=== PATIENT | male | born 1995 | race Caucasian/White ===

== ENCOUNTER 2017-08-31 21:05 | Emergency (ER) | payer SELFPAY ==
[~2017-08-31] VITALS: Ht 188 cm; Wt 71.2 kg
[~2017-08-31 21:05] MED LIST: BENADRYL25 MG PO; HYDROCODON-ACE1 EAC7 PO; LORTAB 5-325 M1 EACH PO; MOTRIN600 MG PO; PREDNISONE20 MG PO; PROVENTIL HFA6.7 GM IH; ULTRAM50 MG PO; ZANTAC150 MG PO; ZITHROMAX Z-PA250 MG PO
[2017-08-31 21:52] LABS: HEMATOCRIT 43.8 % (38.0-50.0); MCH 29.8 PG (29.0-34.0); MCHC 34.2 G/DL (30.0-36.0); MCV 87.1 FL (86-99); MEAN PLAT.VOLUME 9.4 uM^3 (9.0-12.4); PLATELET COUNT 221 K/uL (156-360); RBC DIS.WIDTH-CV 12.2 % (11.8-14.6); RBC DIS.WIDTH-SD 39.2 % (39-53); RED BLOOD COUNT 5.03 M/uL (4.00-5.50)
[2017-08-31 22:04] LABS: CHLORIDE 105 mEq/L (99-109); POTASSIUM 3.4 mEq/L (3.7-5.4); SODIUM 139 mEq/L (136-147)
[2017-08-31 22:05] LABS: GLUCOSE 89 mg/dL (70-99)
[2017-08-31 22:07] LABS: ANION GAP 9 MEQ/L (2-14)
[2017-08-31 22:08] LABS: SERUM ETHYL ALCOHOL < 10 mg/dL
[2017-08-31 22:09] LABS: GFR ESTIMATE (CALCULATED) > 59 mL/min/ (58.99-99999)
[2017-08-31 22:11] LABS: UREA NITROGEN (BUN) 6 mg/dL (9-23)
[2017-08-31 22:12] LABS: SALICYLATE < 5.0 MG/DL (15-30)
[2017-08-31] MEDS ORDERED: CELEXA20 MG PO (23:01)
[2017-08-31 23:32] VITALS: BP 142/98
== END 2017-08-31 23:33 | disposition home or self-care (01) ==
LOC: EME 21:05
PROVIDERS: Emergency Medicine
DX: F32.9 Major depressive disorder, single episode, unspecified (principal); F43.25 Adjustment disorder with mixed disturbance of emotions and conduct
CPT/HCPCS: 80048; 85027; 90839; 99281; 99284; G0480

== ENCOUNTER 2017-10-03 22:48 | Emergency (ER) | payer SELFPAY ==
[~2017-10-03] VITALS: Ht 188 cm; Wt 69.9 kg
[~2017-10-03 22:48] MED LIST changes: +CELEXA20 MG PO
[2017-10-03 23:42] VITALS: BP 138/96
== END 2017-10-03 23:51 | disposition home or self-care (01) ==
LOC: EME 22:48
DX: S60.221A Contusion of right hand, initial encounter (principal); W22.09XA Striking against other stationary object, initial encounter; F17.200 Nicotine dependence, unspecified, uncomplicated
CPT/HCPCS: 73130; 99281; 99284